=== PATIENT | female | born 1960 | race Caucasian/White ===

== ENCOUNTER → 2019-03-22 | Outpatient (CLI) | payer OTHER ==
[2019-03-23 13:48] LABS: Alt. alternata IgE Class CLASS 0; Alternaria alternata IgE <0.10 kU/L (<0.10); Asperg. fumagatus IgE <0.10 kU/L (<0.10); Asperg. fumagatus IgE Class CLASS 0; Candida albicans IgE Class CLASS 0; Clad herbarum IgE <0.10 kU/L (<0.10); Clad herbarum IgE Class CLASS 0; Latex IgE Class CLASS 0; Mucor racemosus IgE <0.10 kU/L (<0.10); Mucor racemosus IgE Class CLASS 0; Penicillium chrysogenum IgE <0.10 kU/L (<0.10); Penicillium chrysogenum IgE Cl CLASS 0
== END ==
LOC: LABWHC1 15:11
PROVIDERS: ATTEND Internal Medicine Sleep Medicine
DX: B44.81 Allergic bronchopulmonary aspergillosis (principal)
CPT/HCPCS: 36415; 82785; 86001; 86003; 86606; 86609

== ENCOUNTER 2019-04-04 12:29 | Emergency (ER) | payer OTHER ==
[2019-04-04 12:43] VITALS: TEMP 97.7
[2019-04-04] MEDS ORDERED: SODIUM CHLORIDE 0.9% 500 ML 500 ML IV STA (13:28)
--- NOTE | 2019-04-04 13:57 | ED ---
General Adult HPI - General Chief complaint: Syncope Stated complaint: near syncope, chest discomfort Time Seen by Provider: 04/04/19 13:13 Source: patient Mode of arrival: ambulatory Limitations: no limitations - History of Present Illness Initial comments: Dictation was produced using [employer] dictation software. please excuse any gram matical, word or spelling errors. Chief Complaint: 58-year-old female with past medical history of newly diagnosed sleep apnea, hypertension presents with presyncope. History of Present Illness: As a 58-year-old female she has past medical history dyslipidemia, hypertension and sleep apnea. Patient states she was driving her car when she felt a sensation like a curtain was coming over her eyes. Immediately prior to the sensation she had a "electric current feeling"sensation in her chest going up to her neck that lasted for a couple seconds. She denied the sensation of palpitations. She has been having a nagging URI for the last couple days. She thought that maybe this is some related to her sleep apnea. Patient took some deep breaths and her symptoms improved. Patient denies any episode of syncope in the past. Denies any cardiac history. The ROS documented in this emergency department record has been reviewed and confirmed by me. Those systems with pertinent positive or negative responses have been documented in the HPI. All other systems are other negative and/or noncontributory. PHYSICAL EXAM: General Impression: Alert and oriented x3, not in acute distress HEENT: Normocephalic atraumatic, extra-ocular movements intact, pupils equal and reactive to light bilaterally, mucous membranes moist. Cardiovascular: Heart regular rate and rhythm, S1&S2 audible, no murmurs, rubs or gallops Chest: Lungs clear to auscultation bilaterally, no rhonchi, no wheeze, no rales Abdomen: Bowel sounds present, abdomen soft, non-tender, non-distended, no organomegaly Musculoskeletal: Pulses present and equal in all extremities, no peripheral edema Motor: no focal deficits noted Neurological: CN II-XII grossly intact, no focal motor or sensory deficits noted Skin: Intact with no visualized rashes Psych: Normal affect and mood ED course: 58-year-old female with chief complaint of presyncope. Vital signs upon arrival are within acceptable limits.Laboratory evaluation obtained. CBC, coag panel, metabolic panel is unremarkable. Cardiac enzymes negative. Urin alysis negative. Chest x-ray is nonacute. Patient observed in the emergency department for several hours with no events. She is ambulatory without complications. Patient spoke presentation likely secondary to vasovagal symptoms. She does not have a history of heart failure. She is well-appearing at bedside. The patient is reasonable for discharge with outpatient workup of symptoms. She is agreeable to this. Patient will follow-up with her primary care physician. Return parameters discussed. Patient clear for discharge. She is stable hemodynamics all throughout her emergency department stay. Discussed with patient that she may have another episode of syncope at which she understa nds she should return to the emergency department. EKG interpretation: Ventricular rate 86, normal sinus rhythm, AR interval 180, care 70, QTC 421. No AR prolongation, no QTC prolongation, no ST or T-wave changes noted. No old EKG for comparison. Overall, this EKG is unremarkable - Related Data Home Medications Medication Instructions Recorded Confirmed Albuterol Sulfate [Ventolin HFA] 2 puff INHALATION RT-Q6H PRN 04/04/19 04/04/19 Atorvastatin Calcium [Lipitor] 10 mg PO HS 04/04/19 04/04/19 Cetirizine HCl [Zyrtec] 10 mg PO HS 04/04/19 04/04/19 Fluticasone Nasal [place] [Flonase 1 spray EA NOSTRIL HS PRN 04/04/19 04/04/19 Nasal [place]] Ibuprofen [Motrin Ib] 400 mg PO HS 04/04/19 04/04/19 Losartan Potassium 50 mg PO HS 04/04/19 04/04/19 Montelukast [Singulair] 10 mg PO HS 04/04/19 04/04/19 Allergies Allergy/AdvReac Type Severity Reaction Status Date / Time No Known Allergies Allergy Verified 04/04/19 14:17 Review of Systems ROS Statement: Those systems with pertinent positive or pertinent negative responses have been documented in the HPI. ROS Other: All systems not noted in ROS Statement are negative. Past Medical History Past Medical History: Hyperlipidemia, Hypertension Additional Past Medical History / Comment(s): allergies History of Any Multi-Drug Resistant Organisms: None Reported Past Surgical History: Appendectomy Additional Past Surgical History / Comment(s): L foot, B lumpectomy Past Psychological History: Anxiety Smoking Status: Current every day smoker Past Alcohol Use History: Occasional Past Drug Use History: None Reported General Exam Limitations: no limitations Course Vital Signs 04/04/19 12:33 Temperature 97.7 F Pulse Rate 93 Respiratory 18 Rate Blood Pressure 155/84 O2 Sat by Pulse 95 Oximetry Medical Decision Making - Lab Data Result diagrams: 04/04/19 13:00 04/04/19 13:00 Lab Results 04/04/19 04/04/19 04/04/19 Range/Units 13:00 13:00 13:00 WBC 7.1 (3.8-10.6) k/uL RBC 5.23 (3.80-5.40) m/uL Hgb 16.0 (11.4-16.0) gm/dL Hct 46.1 H (34.0-46.0) % MCV 88.1 (80.0-100.0) fL MCH 30.6 (25.0-35.0) pg MCHC 34.8 (31.0-37.0) g/dL RDW 12.6 (11.5-15.5) % Plt Count 205 (150-450) k/uL Neutrophils % 59 % Lymphocytes % 31 % Monocytes % 5 % Eosinophils % 3 % Basophils % 1 % Neutrophils # 4.2 (1.3-7.7) k/uL Lymphocytes # 2.2 (1.0-4.8) k/uL Monocytes # 0.4 (0-1.0) k/uL Eosinophils # 0.2 (0-0.7) k/uL Basophils # 0.1 (0-0.2) k/uL PT 9.8 (9.0-12.0) sec INR 0.9 (<1.2) APTT 24.8 (22.0-30.0) sec Sodium 142 (137-145) mmol/L Potassium 4.4 (3.5-5.1) mmol/L Chloride 110 H (98-107) mmol/L Carbon Dioxide 24 (22-30) mmol/L Anion Gap 8 mmol/L BUN 16 (7-17) mg/dL Creatinine 0.78 (0.52-1.04) mg/dL Est GFR (CKD-EPI)AfAm >90 (>60 ml/min/1.73 sqM) Est GFR (CKD-EPI)NonAf 83 (>60 ml/min/1.73 sqM) Glucose 100 H (74-99) mg/dL Calcium 9.5 (8.4-10.2) mg/dL Magnesium 1.9 (1.6-2.3) mg/dL Total Bilirubin 0.9 (0.2-1.3) mg/dL AST 23 (14-36) U/L ALT 35 (9-52) U/L Alkaline Phosphatase 79 (38-126) U/L Troponin I (0.000-0.034) ng/mL Total Protein 6.8 (6.3-8.2) g/dL Albumin 4.3 (3.5-5.0) g/dL Urine Color Urine Appearance (Clear) Urine pH (5.0-8.0) Ur Specific [place] (1.001-1.035) Urine Protein (Negative) Urine Glucose (UA) (Negative) Urine Ketones (Negative) Urine Blood (Negative) Urine Nitrite (Negative) Urine Bilirubin (Negative) Urine Urobilinogen (<2.0) mg/dL Ur Leukocyte Esterase (Negative) Urine RBC (0-5) /hpf Urine WBC (0-5) /hpf Ur Squamous Epith Cells (0-4) /hpf Urine Bacteria (None) /hpf Urine Mucus (None) /hpf 04/04/19 04/04/19 Range/Units 13:00 13:00 WBC (3.8-10.6) k/uL RBC (3.80-5.40) m/uL Hgb (11.4-16.0) gm/dL Hct (34.0-46.0) % MCV (80.0-100.0) fL MCH (25.0-35.0) pg MCHC (31.0-37.0) g/dL RDW (11.5-15.5) % Plt Count (150-450) k/uL Neutrophils % % Lymphocytes % % Monocytes % % Eosinophils % % Basophils % % Neutrophils # (1.3-7.7) k/uL Lymphocytes # (1.0-4.8) k/uL Monocytes # (0-1.0) k/uL Eosinophils # (0-0.7) k/uL Basophils # (0-0.2) k/uL PT (9.0-12.0) sec INR (<1.2) APTT (22.0-30.0) sec Sodium (137-145) mmol/L Potassium (3.5-5.1) mmol/L Chloride (98-107) mmol/L Carbon Dioxide (22-30) mmol/L Anion Gap mmol/L BUN (7-17) mg/dL Creatinine (0.52-1.04) mg/dL Est GFR (CKD-EPI)AfAm (>60 ml/min/1.73 sqM) Est GFR (CKD-EPI)NonAf (>60 ml/min/1.73 sqM) Glucose (74-99) mg/dL Calcium (8.4-10.2) mg/dL Magnesium (1.6-2.3) mg/dL Total Bilirubin (0.2-1.3) mg/dL AST (14-36) U/L ALT (9-52) U/L Alkaline Phosphatase (38-126) U/L Troponin I <0.012 (0.000-0.034) ng/mL Total Protein (6.3-8.2) g/dL Albumin (3.5-5.0) g/dL Urine Color Yellow Urine Appearance Clear (Clear) Urine pH 6.0 (5.0-8.0) Ur Specific [place] 1.010 (1.001-1.035) Urine Protein Negative (Negative) Urine Glucose (UA) Negative (Negative) Urine Ketones Negative (Negative) Urine Blood Trace H (Negative) Urine Nitrite Negative (Negative) Urine Bilirubin Negative (Negative) Urine Urobilinogen <2.0 (<2.0) mg/dL Ur Leukocyte Esterase Small H (Negative) Urine RBC 3 (0-5) /hpf Urine WBC 4 (0-5) /hpf Ur Squamous Epith Cells 3 (0-4) /hpf Urine Bacteria Few H (None) /hpf Urine Mucus Rare H (None) /hpf Disposition Clinical Impression: Syncope Disposition: HOME SELF-CARE Condition: Good Instructions (If sedation given, give patient instructions): Syncope (ED) Is patient prescribed a controlled substance at d/c from ED?: No Referrals: Yuki Lopez MD [Primary Care Provider] - 1-2 days Time of Disposition: 14:47
[2019-04-04 14:05] LABS: INR 0.9 (<1.2); Partial Thromboplastin Time 24.8 sec (22.0-30.0); Prothrombin Time 9.8 sec (9.0-12.0)
[2019-04-04 14:08] LABS: Appearance,Urine Clear (Clear); Bacteria,Urine Few /hpf; Bilirubin,Urine Negative (Negative); Blood,Urine Trace (Negative); Color,Urine Yellow; Glucose,Urine (UA) Negative (Negative); Ketones,Urine Negative (Negative); Leukocyte Esterase,Urine Small (Negative); Mucus,Urine Rare /hpf; Nitrite,Urine Negative (Negative); Protein,Urine Negative (Negative); RBC,Urine 3 /hpf (0-5); Squamous Epithelial Cell,Urine 3 /hpf (0-4); Urobilinogen,Urine <2.0 mg/dL (<2.0); WBC,Urine 4 /hpf (0-5)
[2019-04-04 14:13] LABS: Basophils # (A) 0.1 k/uL (0-0.2); Basophils % (A) 1 %; Eosinophils # (A) 0.2 k/uL (0-0.7); Eosinophils % (A) 3 %; HCT 46.1 % (34.0-46.0); Lymphocytes # (A) 2.2 k/uL (1.0-4.8); Lymphocytes % (A) 31 %; MCH 30.6 pg (25.0-35.0); MCHC 34.8 g/dL (31.0-37.0); MCV 88.1 fL (80.0-100.0); Mean Platelet Volume 6.6; Monocytes # (A) 0.4 k/uL (0-1.0); Monocytes % (A) 5 %; Neutrophils # (A) 4.2 k/uL (1.3-7.7); Neutrophils % (A) 59 %; Platelet Count 205 k/uL (150-450); RBC 5.23 m/uL (3.80-5.40); RDW 12.6 % (11.5-15.5); WBC 7.1 k/uL (3.8-10.6)
[2019-04-04 14:14] LABS: ALT 35 U/L (9-52); AST 23 U/L (14-36); African American GFR (CKD) >90 (>60 ml/min/1.73 sqM); Albumin 4.3 g/dL (3.5-5.0); Alkaline Phosphatase 79 U/L (38-126); Anion Gap 8 mmol/L; Blood Urea Nitrogen 16 mg/dL (7-17); Calcium 9.5 mg/dL (8.4-10.2); Carbon Dioxide 24 mmol/L (22-30); Chloride 110 mmol/L (98-107); Glucose 100 mg/dL (74-99); Magnesium 1.9 mg/dL (1.6-2.3); Non-African American GFR(CKD) 83 (>60 ml/min/1.73 sqM); Potassium 4.4 mmol/L (3.5-5.1); Sodium 142 mmol/L (137-145); Total Bilirubin 0.9 mg/dL (0.2-1.3); Total Protein 6.8 g/dL (6.3-8.2)
--- NOTE | 2019-04-04 14:19 | XR ---
EXAMINATION TYPE: XR chest 2V DATE OF EXAM: 04/04/2019 COMPARISON: NONE HISTORY: Syncope TECHNIQUE: Frontal and lateral views of the chest are obtained. FINDINGS: Bibasilar opacities are likely attributable to copious overlying soft tissue swelling as th alejandra are not reproduced on the lateral view. There is no focal air space opacity, pleural effusion, o r pneumothorax seen. Slight flattening the diaphragms on the lateral view suggests underlying COPD. T he cardiac silhouette size is within normal limits. The osseous structures are intact. Mild multile ilda degenerative changes of the spine. IMPRESSION: No acute cardiopulmonary process.
[2019-04-04 14:58] VITALS: BP 129/83; PULSE 86; RESP 16
== END 2019-04-04 14:58 | disposition home or self-care (01) ==
LOC: EC 12:29
DX: R55 Syncope and collapse (principal); G47.30 Sleep apnea, unspecified; E78.5 Hyperlipidemia, unspecified; I10 Essential (primary) hypertension; F17.200 Nicotine dependence, unspecified, uncomplicated; Z79.899 Other long term (current) drug therapy; Z79.1 Long term (current) use of non-steroidal anti-inflammatories (NSAID)
CPT/HCPCS: 36415; 71046; 80053; 81001; 83735; 84484; 85025; 85610; 85730; 93005; 96360; 99284

== ENCOUNTER → 2019-04-13 | Outpatient (CLI) | payer OTHER ==
--- NOTE | 2019-04-13 11:18 | NM ---
EXAMINATION TYPE: NM stress cardiolite complete DATE OF EXAM: 04/13/2019 COMPARISON: NONE HISTORY: Precordial chest pain and abnormal EKG. TECHNIQUE: After the intravenous administration of 10.5 mCi Tc 99m Sestamibi - Rest images obtained 50 minutes post injection. The patient exercised using a SONAM protocol and 1 minute prior to peak exercise was injected with 25.6 mCi Tc 99m Sestamibi - Stress images obtained 15 minutes post injecti on. FINDINGS: Targeted heart rate was achieved during performance of the study. Review of stress and rest SPECT mariana ges demonstrates stress-induced decreased perfusion involving the anterior wall, cardiac apex and pos teriorly apical law. Stress-induced ischemia is not excluded. Gated analysis shows normal wall yanet on with an estimated left ventricular ejection fraction of 59 %. IMPRESSION: Stress-induced ischemia is not excluded as discussed above.
--- NOTE | 2019-04-13 12:45 | EST ---
EXERCISE STRESS AGE: 58 SEX: F HT: 68" WT: 285 PROTOCOL: Cardiolite Conor Stress Test STAGE: 2 DURATION OF EXERCISE: 6:15 HEART RATE REST: 78 BLOOD PRESSURE REST: 117/76 MAXIMUM HEART RATE ACHIEVED: 139 MAXIMUM BLOOD PRESSURE: 182/93 85% MPHR: 136 100% MPHR: 160 METS: 7.1 INDICATIONS: Chest pain. CLINICAL INFORMATION: STRESS DATA: Heart rate 78, pressure is 117/76 mmHg. Baseline EKG showed sinus rhythm. The patient exercised on the treadmill according to Conor protocol for a total of 6 minutes and 15 seconds and achieved 7.1 METS. Max heart rate was 139 which is about 87% of maximum predicted heart rate. Maximum blood pressure was 182/93 mmHg. Clinically, the patient did not have any symptoms of chest pain or chest discomfort during the testing or on recovery. Clinically, the patient has no symptoms. Again, the EKG did not show any significant changes. CONCLUSION: 1. Good exercise tolerance. 2. Normal EKG in response to exercise. 3. Essentially normal stress test for the patient. MMODL / IJN: [id number] /
== END | disposition home or self-care (01) ==
LOC: RADNMMAIN 08:31
PROVIDERS: ATTEND Family Medicine
DX: R07.89 Other chest pain (principal); R06.02 Shortness of breath
CPT/HCPCS: 93017; 78452; A9500

== ENCOUNTER 2019-10-17 10:06 | Day surgery (SDC) | payer OTHER ==
[2019-10-13 10:43] VITALS: BMI 42.5
[~2019-10-17 10:06] MED LIST: LACTATED RINGERS 1,000 ML IV SCH; LIDOCAINE 1% (10MG/ML) FOR IV START INTRADERMA PRN
[2019-10-17 10:32] VITALS: TEMP 96.3
[2019-10-17] MEDS ORDERED: PROPOFOL 10 MG/ML 20 ML VIAL IV ONE (11:24)
[2019-10-17] MEDS ORDERED: LIDOCAINE 1% INJ 10MG/ML (20 ML MDV) ONE (11:24)
--- NOTE | 2019-10-17 11:58 | P.PCN ---
Date of Procedure: 10/17/19 Description of Procedure: BRIEF HISTORY: Patient is a 59-year-old female presenting for outpatient elective colonoscopy as part of screening for malignant neoplasm of the colon. Last colonoscopy at the age of 48. No family history of colon cancer. Has reported some constipation in the past 6 months, denies any blood per rectum. PROCEDURE PERFORMED: Colonoscopy with polypectomy. PREOPERATIVE DIAGNOSIS: Screening for malignant neoplasm of the colon, last colonoscopy 11 years ago. ESTIMATED BLOOD LOSS: Minimal. IV sedation per Anesthesia. PROCEDURE: After informed consent was obtained, the patient, was brought into the endoscopy unit. IV sedation was administered by Anesthesia under continuous monitoring. Digital rectal examination was normal. Initially the Olympus CF-190 flexible video colonoscope was then inserted in the rectum, gradually advanced into the c ecum without any difficulty. Careful examination was performed as the scope was gradually being withdrawn. Ileocecal valve and the appendiceal orifice were visualized and appeared normal. Prep was excellent. Mucosa of the cecum, ascending colon, transverse colon, descending colon, sigmoid colon, and rectum appeared normal. Multiple small and large diverticula noted in the left colon. One diminutive 3 mm ascending colon polyp removed with cold forceps. 2 diminutive polyps from the sigmoid colon measuring 2 and 3 mm removed with cold forcep polypectomy. 2 diminutive rectal polyps forceps measuring 1 mm in size. Retroflexion was performed in the rectum and no lesions were seen, mild internal hemorrhoids. The patient tolerated the procedure well. IMPRESSION: 5 diminutive polyps all removed with cold forcep polypectomy (2 from the rectum, 2 from the sigmoid and 1 from the descending colon). Moderate left colonic diverticulosis. RECOMMENDATIONS: Findings of this examination were discussed with the patient and her family. Okay for diet. Okay to resume medications. Await pathology from polypectomies. Would recommend repeat colonoscopy in 5 years pending pathology from polyp ectomies.
[2019-10-17 12:24] VITALS: BP 117/77; PULSE 90; RESP 20
== END 2019-10-17 12:40 | disposition home or self-care (01) ==
LOC: ORWHC2ENDO 10:06
PROVIDERS: ATTEND Internal Medicine
DX: Z12.11 Encounter for screening for malignant neoplasm of colon (principal); D12.4 Benign neoplasm of descending colon; K63.5 Polyp of colon; K62.1 Rectal polyp; K57.30 Diverticulosis of large intestine without perforation or abscess without bleeding; K64.8 Other hemorrhoids; I10 Essential (primary) hypertension; E78.5 Hyperlipidemia, unspecified; J44.9 Chronic obstructive pulmonary disease, unspecified; G47.33 Obstructive sleep apnea (adult) (pediatric); M19.90 Unspecified osteoarthritis, unspecified site; Z88.5 Allergy status to narcotic agent; Z88.8 Allergy status to other drugs, medicaments and biological substances; Z87.19 Personal history of other diseases of the digestive system; Z72.0 Tobacco use; Z79.899 Other long term (current) drug therapy; Z79.82 Long term (current) use of aspirin; Z79.1 Long term (current) use of non-steroidal anti-inflammatories (NSAID); Z90.49 Acquired absence of other specified parts of digestive tract; Z98.890 Other specified postprocedural states
CPT/HCPCS: 88305; 45380; J2001; J2704

== ENCOUNTER → 2022-12-29 | Outpatient (CLI) | payer OTHER ==
--- NOTE | 2022-12-29 11:45 | CTL ---
EXAMINATION TYPE: CT Low Dose Lung DATE OF EXAM ORDERED: 12/29/2022 COMPARISON: None HISTORY: . Low Dose CT Lung Screening CT DLP: 86.[address] CTDI: 2.4 mGy IV CONTRAST USED: None. SCREENING VISIT: First visit COMPARISON: None. TECHNIQUE: Low dose computed tomography scan was performed through the chest at 1 millimeter thick se ctions and reconstructed images in the coronal plane at [address] DIAGNOSTIC QUALITY: Satisfactory FINDINGS: LUNG NODULES: Not presentLeft lung: no nodules identified.Right lung: no nodules identified. LUNGS: COPD: Severity: Mild Fibrosis: Severity: Mild Lymph nodes: None Other findings: None RIGHT PLEURAL SPACE: Effusion: None Calcification: None Thickening: None Pneumothorax: None LEFT PLEURAL SPACE: Effusion: None Calcification: None Thickening: None Pneumothorax: None HEART: Heart Size: Mildly enlarged Coronary calcification: Mild Pericardial effusion: None OTHER FINDINGS: Upper abdomen: No significant abnormality Bony thorax: Degenerative changes Supraclavicular region: No significant abnormalityOther: No significant abnormalityI IMPRESSION: No distinct pulmonary nodules seen. FOLLOW UP CT CHEST RECOMMENDATION: Follow-up screening in one year CT LUNG RAD: LUNG RAD CATEGORY 1 negative
== END | disposition home or self-care (01) ==
LOC: RADCTMAIN 10:50 → MERGE 11:00
PROVIDERS: ATTEND Family Medicine
DX: Z12.2 Encounter for screening for malignant neoplasm of respiratory organs (principal); F17.210 Nicotine dependence, cigarettes, uncomplicated
CPT/HCPCS: 71271

== ENCOUNTER → 2024-01-26 | Outpatient (CLI) | payer MEDICARE ==
--- NOTE | 2024-01-26 12:25 | CTL ---
EXAMINATION TYPE: CT Low Dose Lung DATE OF EXAM ORDERED: 01/26/2024 HISTORY: Personal tobacco use, current smoker, tobacco history. Lung cancer screening CT DLP: 157.[address] CTDI: 4.3 mGy Automated exposure control for dose reduction was used. SCREENING VISIT: Second screening visit COMPARISON: CT Low Dose Lung 12/29/2022 TECHNIQUE: Low dose computed tomography scan was performed through the chest at 1 mm thick sections a nd reconstructed images in multiple planes at 1 mm and [address] DIAGNOSTIC QUALITY: Satisfactory FINDINGS: Nodules: Stable peripheral right lower lobe 4 mm pulmonary nodule (series 6, image 42). No new or enlarging pu lmonary nodules. LUNGS: COPD: Severity: Mild Fibrosis: Severity: None Lymph nodes: None Other findings: None RIGHT PLEURAL SPACE: Effusion: None Calcification: None Thickening: None Pneumothorax: None LEFT PLEURAL SPACE: Effusion: None Calcification: None Thickening: None Pneumothorax: None HEART: Heart Size: Normal Coronary Calcification: Small Pericardial Effusion: None OTHER FINDINGS: Upper abdomen: None Bony thorax: Mild degenerative changes of the spine. Supraclavicular region: None Other: Mild atherosclerotic calcification of the aorta and its branches. IMPRESSION: 1. Stable peripheral right lower lobe 4 mm pulmonary nodule. No new or enlarging pulmonary nodules. 2. Mild COPD changes. CT LUNG RAD AND CT CHEST RECOMMENDATION: Lung-Rad 2 Benign Appearance or Behavior: Continue annual sc reening with LDCT in 12 months. S Modifier (other clinically significant findings): None [facility], , 01/26/2024 12:22 PM
== END | disposition home or self-care (01) ==
LOC: RADCTMAIN 11:17
PROVIDERS: ATTEND Family Medicine
DX: Z12.2 Encounter for screening for malignant neoplasm of respiratory organs
CPT/HCPCS: 71271